=== PATIENT | female | born 1985 | race Caucasian/White ===

== ENCOUNTER 2017-05-05 15:20 | Emergency (ER) | payer BC ==
[~2017-05-05] VITALS: Ht 162.6 cm; Wt 78.4 kg
[~2017-05-05 15:20] MED LIST: BCPILLS PO
[2017-05-05 15:36] VITALS: Ht 162.6 cm; Wt 78.4 kg
[2017-05-05 17:07] LABS: BASO % 0.3 %; BASO ABS # 0.03 K/uL (0-0.2); COMPLETE YES; EOS % 17.3 %; HEMATOCRIT 43.6 % (37-47); IG% 0.3 %; LYMPH % 19.4 %; MEAN CELL VOLUME 87.2 fL (80-100); MEAN CORPUSCULAR HGB CONC 34.4 g/dl (32-36); MEAN PLATELET VOLUME 9.9 fL (7.4-10.4); MONO % 5.5 %; NEUT % 57.2 %; PLATELET COUNT 353 K/uL (130-400); WHITE BLOOD COUNT 10.82 K/uL (4.8-10.8)
[2017-05-05 17:13] LABS: MANUAL MICROSCOPIC REQUIRED? NO; REVIEW REQ? NO; URINE APPEARANCE CLOUDY (CLEAR); URINE BILIRUBIN NEG (NEG); URINE COLOR YELLOW; URINE EPITHELIAL CELL AUTO >30 /lpf (0-5); URINE NITRITE NEG (NEG); URINE PH 7.5 (4.5-7.5); URINE SPECIFIC GRAVITY 1.017 (1.000-1.030); UROBILINOGEN NEG (NEG); ZZUR CULT IF INDIC CLEAN CATCH YES
[2017-05-05 17:33] LABS: BUN/CREATININE RATIO 13.6 (10-20); CALCIUM 8.7 mg/dl (8.5-10.1); CREATININE 0.87 mg/dl (0.60-1.20); MAGNESIUM 2.5 mg/dl (1.8-2.4); POTASSIUM 3.6 mmol/L (3.5-5.1)
[2017-05-05 17:36] LABS: ALB/GLOB RATIO 1.1 (0.9-2)
--- NOTE | 2017-05-05 18:23 | DIAGNOSTIC IMAGING REPORT ---
GALLBLADDER-ABD LIMITED CLINICAL HISTORY: Post prandial abdominal pain pain. Nausea. TECHNIQUE: Ultrasound COMPARISON STUDY: None FINDINGS: Negative study IMPRESSION: Negative study Electronically signed by: Danielito Watson M.D. 05/05/2017 6:22 PM Dictated Date/Time: 05/05/2017 6:21 PM
[2017-05-05] MEDS ORDERED: OPTIRAY 320 IV PRN (20:30)
--- NOTE | 2017-05-05 20:30 | DIAGNOSTIC IMAGING REPORT ---
ABDOMEN AND PELVIS CT WITH IV AND ORAL CONTRAST CT DOSE: 360.55 mGy.cm HISTORY: Pain Periumbilical abdominal pain TECHNIQUE: Multiaxial CT images of the abdomen and pelvis were performed following the use of intravenous and oral contrast. COMPARISON STUDY: None. FINDINGS: The lung bases are clear. The liver, spleen, gallbladder, pancreas, kidneys, and adrenal glands are within normal limits. No bowel wall thickening or obstruction. The pelvic organs are unremarkable. No suspicious lytic or blastic osseous lesions. The appendix is normal. Kidneys negative for hydronephrosis. Bowel pattern is nonobstructive. 1.5 cm collapsing left ovarian cyst. IMPRESSION: 1. 1.5 cm partially collapsed left ovarian cyst. 2. Otherwise negative study. 3. Normal appendix. Electronically signed by: Danielito Watson M.D. 05/05/2017 8:28 PM Dictated Date/Time: 05/05/2017 8:26 PM
--- NOTE | 2017-05-05 20:48 | EMERGENCY ROOM VISIT NOTE ---
History First contact with patient: 16:13 Chief Complaint: ABDOMINAL PAIN Stated Complaint: SEVERE STOMACH PAIN History of Present Illness The patient is a 31 year old female who presents to the Emergency Room via private vehicle with complaints of "severe stomach pain". The patient states that starting her on April 16 of this past year every time she ate she developed diarrhea. She states that time she developed heartburn is taken Zantac which has helped. She states that the abdominal pain is located around the umbilicus and radiates to left lower quadrant. She states that this is worse with eating and often at nighttime. She was seen by her family doctor, Dr. Franks on April 26 who performed blood work of which she states was normal. She is here because at times the pain will increase to an 8-9/10 post prandially. She denies fevers , chills, vaginal discharge, urinary symptoms. She denies recent antibiotic use. Review of Systems A complete 10-point Review of Systems was discussed with the patient, with pertinent positives and negatives listed in the History of Present Illness. All remaining Review of Systems questions can be considered negative unless otherwise specified. Past Medical/Surgical History Ovarian cysts Family History No pertinent Family history. Social History Smoking Status: Never Smoker Social History: Patient is and lives locally. Current/Historical Medications No Active Prescriptions or Reported Meds Allergies Coded Allergies: No Known Allergies (Unverified , 05/05/17) Physical Exam Vital Signs Date Time Temp Pulse Resp B/P (MAP) Pulse Ox O2 Delivery O2 Flow Rate FiO2 05/05/17 21:00 36.8 68 18 112/77 97 05/05/17 18:41 64 18 124/74 99 Room Air 05/05/17 15:36 36.8 76 16 120/83 96 Room Air Physical Exam VITAL SIGNS - Vital signs and nursing notes were reviewed. Patient is afebrile , normotensive, non-tachycardic and is saturating well on room air 96%. GENERAL -31-year-old female appearing her stated age who is in no acute distress. Communicates well with provider and answers questions appropriately. SKIN - Without rashes. No petechial rashes. HEAD - NC/AT. LUNGS - Chest wall symmetric without accessory muscle use, intercostals retractions, or central cyanosis. Normal vesicular breath sounds CTA B/L. No wheezes, rales, or rhonchi appreciated. CARDIAC - RRR with S1/S2. No murmur, rubs, or gallops appreciated. ABDOMEN - Abdominal contour without pulsations or visible masses. BS normoactive all four quadrants. There is tenderness to palpation overlying the periumbilical and left lower quadrant regions. No palpable masses, hepatosplenomegaly, or ascites noted. Medical Decision & Procedures ER Provider Diagnostic Interpretation: GALLBLADDER-ABD LIMITED CLINICAL HISTORY: Post prandial abdominal pain pain. Nausea. TECHNIQUE: Ultrasound COMPARISON STUDY: None FINDINGS: Negative study IMPRESSION: Negative study Electronically signed by: Danielito Watson M.D. 05/05/2017 6:22 PM Dictated Date/Time: 05/05/2017 6:21 PM ABDOMEN AND PELVIS CT WITH IV AND ORAL CONTRAST CT DOSE: 360.55 mGy.cm HISTORY: Pain Periumbilical abdominal pain TECHNIQUE: Multiaxial CT images of the abdomen and pelvis were performed following the use of intravenous and oral contrast. COMPARISON STUDY: None. FINDINGS: The lung bases are clear. The liver, spleen, gallbladder, pancreas, kidneys, and adrenal glands are within normal limits. No bowel wall thickening or obstruction. The pelvic organs are unremarkable. No suspicious lytic or blastic osseous lesions. The appendix is normal. Kidneys negative for hydronephrosis. Bowel pattern is nonobstructive. 1.5 cm collapsing left ovarian cyst. IMPRESSION: 1. 1.5 cm partially collapsed left ovarian cyst. 2. Otherwise negative study. 3. Normal appendix. Electronically signed by: Danielito Watson M.D. 05/05/2017 8:28 PM Dictated Date/Time: 05/05/2017 8:26 PM Laboratory Results 05/05/17 17:00 Red Blood Count 5.00, Mean Corpuscular Volume 87.2, Mean Corpuscular Hemoglobin 30.0, Mean Corpuscular Hemoglobin Concent 34.4, Mean Platelet Volume 9.9, Neutrophils (%) (Auto) 57.2, Lymphocytes (%) (Auto) 19.4, Monocytes (%) (Auto) 5.5, Eosinophils (%) (Auto) 17.3, Basophils (%) (Auto) 0.3, Neutrophils # (Auto ) 6.20, Lymphocytes # (Auto) 2.10, Monocytes # (Auto) 0.59, Eosinophils # (Auto ) 1.87, Basophils # (Auto) 0.03 05/05/17 17:00 Test 05/05/17 17:00 White Blood Count 10.82 K/uL (4.8-10.8) Red Blood Count 5.00 M/uL (4.2-5.4) Hemoglobin 15.0 g/dL (12.0-16.0) Hematocrit 43.6 % (37-47) Mean Corpuscular Volume 87.2 fL (80-100) Mean Corpuscular Hemoglobin 30.0 pg (25-34) Mean Corpuscular Hemoglobin Concent 34.4 g/dl (32-36) Platelet Count 353 K/uL (130-400) Mean Platelet Volume 9.9 fL (7.4-10.4) Neutrophils (%) (Auto) 57.2 % Lymphocytes (%) (Auto) 19.4 % Monocytes (%) (Auto) 5.5 % Eosinophils (%) (Auto) 17.3 % Basophils (%) (Auto) 0.3 % Neutrophils # (Auto) 6.20 K/uL (1.4-6.5) Lymphocytes # (Auto) 2.10 K/uL (1.2-3.4) Monocytes # (Auto) 0.59 K/uL (0.11-0.59) Eosinophils # (Auto) 1.87 K/uL (0-0.5) Basophils # (Auto) 0.03 K/uL (0-0.2) RDW Standard Deviation 40.6 fL (36.4-46.3) RDW Coefficient of Variation 12.8 % (11.5-14.5) Immature Granulocyte % (Auto) 0.3 % Immature Granulocyte # (Auto) 0.03 K/uL (0.00-0.02) Urine Color YELLOW Urine Appearance CLOUDY (CLEAR) Urine pH 7.5 (4.5-7.5) Urine Specific [place] 1.017 (1.000-1.030) Urine Protein NEG (NEG) Urine Glucose (UA) NEG (NEG) Urine Ketones NEG (NEG) Urine Occult Blood NEG (NEG) Urine Nitrite NEG (NEG) Urine Bilirubin NEG (NEG) Urine Urobilinogen NEG (NEG) Urine Leukocyte Esterase LARGE (NEG) Urine WBC (Auto) 5-10 /hpf (0-5) Urine RBC (Auto) 0-4 /hpf (0-4) Urine Hyaline Casts (Auto) 1-5 /lpf (0-5) Urine Epithelial Cells (Auto) >30 /lpf (0-5) Urine Bacteria (Auto) 1+ (NEG) Urine Test NEG (NEG) Anion Gap 8.0 mmol/L (3-11) Est Creatinine Clear Calc Drug Dose 95.0 ml/min Estimated GFR () 102.9 Estimated GFR (Non- 88.8 BUN/Creatinine Ratio 13.6 (10-20) Calcium Level 8.7 mg/dl (8.5-10.1) Magnesium Level 2.5 mg/dl (1.8-2.4) Total Bilirubin 0.5 mg/dl (0.2-1) Aspartate Amino Transf (AST/SGOT) 11 U/L (15-37) Alanine Aminotransferase (ALT/SGPT) 27 U/L (12-78) Alkaline Phosphatase 100 U/L (45-117) Total Protein 7.9 gm/dl (6.4-8.2) Albumin 4.1 gm/dl (3.4-5.0) Globulin 3.8 gm/dl (2.5-4.0) Albumin/Globulin Ratio 1.1 (0.9-2) Lipase 157 U/L (73-393) Medical Decision Patient was seen and evaluated as above. After obtaining a thorough history and physical examination IV access was initiated and the above workup was performed. She presents to us today with abdominal pain that is periumbilical and radiates to the left lower quadrant which is worse postprandially. Ultrasound was initiated, and the above workup. Then a few versus risks was discussed, and the decision was made to obtain a CT scan of the abdomen and pelvis with contrast. Benefits versus risk for specifically discussed with the patient. Ultrasound was negative for acute process. CBC revealed slight leukocytosis at 10.82, no anemia noted, CMP does not reveal any significant abnormality. Lipase is normal. Magnesium is slightly high at 2.5. Bilirubin is normal at 0.5. Urine reveals large amount of leukocytes, 5-10 white blood cells, greater than 30 epithelial cells, and 1+ urine bacteria. Urine test is negative. In the absence of nitrites, I will await culture for this individual. If it is positive for organisms of which need to be treated the patient will be notified. CT scan results as above. There is a small left collapsing ovarian cyst, of which I do believe is causing the patient 's pain. She was educated upon this. She notes that she did follow up with her space planner in the past. I recommended she do so again as well as with her family doctor. She denied any urinary symptoms again therefore do not believe that any UTI is suspected. Patient's vital signs have been stable throughout her stay. She appears stable for discharge. Case was discussed with my attending. The patient was educated upon worrisome symptoms which to return, had questions prior to discharge, and was discharged home in good condition. She declined pain medication. In evaluation treatment this patient following differential diagnoses entertained: Ovarian cyst, appendicitis, diverticulitis, diverticulosis, Crohn' s disease, Clostridium difficile, colitis, , among others. Impression Primary Impression: Left ovarian cyst Additional Impression: LLQ abdominal pain Departure Information Dispostion Home / Self-Care Condition GOOD Prescriptions No Active Prescriptions or Reported Meds Referrals Onur Franks M.D. (PCP) Patient Instructions My [facility] Additional Instructions You have been treated in the Emergency Department your Abdominal Pain. Laboratory results and imaging studies have ruled out any emergent causes for your abdominal pain which would warrant admission or surgery. There is a left ovarian cyst. For pain control, you can use the following atid-ezh-fsrdkhd medicines (if >12 yo): - Regular strength (325mg/tab) Tylenol (acetaminophen) 2 tabs every 4-6 hours as needed. Do not exceed 12 tablets in a 24 hour period. Avoid taking more than 3 grams (3000 mg) of Tylenol per day. This includes any other sources of acetaminophen you may take on a regular basis. - Regular strength (200 mg/tab) Advil (ibuprofen) 1-2 tabs every 4-6 hours as needed. Do not exceed a dose of 3200 mg per day. Drink plenty of water and stay well hydrated. As with any trip to the Emergency Department, you should follow-up with your Primary Care Provider from today's visit. Return to the emergency department if your symptoms persist despite treatment plan outlined above or if the following symptoms occur: increased fevers, chills , worsening nausea/vomiting, blood in your stool or urine. Please return to the emergency department with any new/concerning symptoms. Problem Qualifiers
[2017-05-05 21:00] VITALS: BP 112/77; PULSE 68; TEMP 36.8; O2SAT 97
== END 2017-05-05 21:00 | disposition home or self-care (01) ==
LOC: C.EDB 15:24
DX: N83.202 Unspecified ovarian cyst, left side (principal); R10.32 Left lower quadrant pain